=== PATIENT | female | born 1990 | race Caucasian/White ===

== ENCOUNTER 2024-10-22 15:16 | Outpatient (CLI) | payer OTHER, SELFPAY ==
--- OUTSIDE RECORDS SUMMARY | 2024-10-22 15:44 | XMS_ITS | Encounter Summary ---
Author Organization [facility] Address [address] [place] [address] Care Team Providers Care Watch Parts Inspector Name Role Phone Unavailable Primary Care Provider Unavailabl e Reason for Visit * Reason Onset Date Comments safety check with CP 01/01/2018 Encounter Details Date Type Department Care Team (Late st Contact Info) Description 01/01/[address] [phone] Mark Anthony Beavers MD NO ADDRESS ON FILE safety check with CP Social History Tobacco Use Types Packs/Day Years Used Date Smoking Tobacco: Never Assessed Comments No Sex and Gender Information Value Date Recorded Sex Assigned at Not on file Legal Sex Female 12:49 PM CDT Gender Identity Not on file Sexual Orientation Not on file documented as of this encounter Miscellaneous Notes * Telephone Encounter - Nayeli Hilliard LPC - 01/01/2018 3:04 PM CDT Therapist contacted Ana's Jules, who confirmed he has locked up all of the weapons, cashand medication and states he will remove her License to carry card as well when she gets home today. Jules talked some about the episode over the weekend where Ana left their home with their daughter and claims she just needed space from everything that was going on. Jules said he has been keeping close eye on her and her moods and he feels hopeful that she is finally saying she wants to get better, because before she started IOP she was saying I don't want to get better. Jules reports he has seen a positive change since she started taking the Lexapro and he thinks she is finally starting to see how important it is that she find a hobby or something else to do with her time, to give her a break from the kids and provide her some feeling of purpose outside of being a mother. Jules has number to contact therapist should other concerns arise. Jules reports no concerns for her safety at this time. documented in this encounter Plan of Treatment Not on file documented as of this encounter Visit Diagnoses Not on filedocumented in this encounter Additional Health Concerns Assessment Noted Time PHQ-9 Depression Total Score: 4 01/02/20 18 2:00 PM CDT documented as of this encounter
--- OUTSIDE RECORDS SUMMARY | 2024-10-22 15:44 | XMS_ITS | Clinical Summary ---
Author Organization [facility] Address [address] [place] [id number] Care Team Providers Care Weapons And Tactics Instructor Name Role Phone Unavailable Primary Care Provider Unavailabl e Social History Tobacco Use Types Packs/Day Years Used Date Smoking Tobacco: Never Assessed Comments Unknown Sex and Gender Information Value Date Recorded Sex Assigned at Not on file Legal Sex Female 4:41 PM CDT Gender Identity Not on file Sexual Orientation Not on file Plan of Treatment Health Maintenance Due Date Last Done Comments Cervical Cancer Screening Pa p Smear (Age 30 to 64) Every 3 Years 1992 Annual Physical 1995 Hepatitis C 2010 DTaP, Tdap and Td Vaccines ( 1 - Tdap) 2011 Hepatitis B Vaccines (1 of 3 - 19+ 3-dose series) 2011 HPV Vaccines (1 - 3-dose SCD M series) 2019 Cervical Cancer Screening Pa p with HPV Testing (Age 30 to 64) Every 5 Years 2022 Cervical Cancer Screening with HPV 2022 COVID-19 Vaccine ( - 2023-2 5 season) 2023 Meningococcal B Vaccine Aged Out No l onger eligible based on patient's age to complete this topic Meningococcal Vaccine Aged Out No seth jannet eligible based on patient's age to complete this topic Pneumococcal Vaccine: Pediat rics (0 to 5 Years) and At-Risk Patients (6 to 49 Years) Aged Out No longer eligible b ased on patient's age to complete this topic RSV Immunizations Under 20 Months Aged Out No longer eligible based on patient's age to complete this topic Advance Directives Documents on File Type Date Recorded Patient Compliance Advisor Expl anation Advance Directives and Living Will 11/03/2015 12:00 AM [employer]ES
--- OUTSIDE RECORDS SUMMARY | 2024-10-22 15:44 | XMS_ITS | Clinical Summary ---
Author Organization [facility] Address [address] [place] [address] Phone Care Team Providers Care Paper Tube Machine Operator Name Role Phone Unavailable Primary Care Provider Unavailabl e Allergies No known active allergies Medications No known medications Social History Tobacco Use Types Packs/Day Years Used Date Smoking Tobacco: Never Assessed Comments No Sex and Gender Information Value Date Recorded Sex Assigned at Not on file Legal Sex Female 12:49 PM CDT Gender Identity Not on file Sexual Orientation Not on file Last Filed Vital Signs Vital Sign Reading Time Taken Comments Blood Pressure 132/84 12/06/2017 12:30 PM CDT Pulse 82 12/06/2017 12:30 PM CDT Temperature 36.7 C (98.1 F) 12/06/2017 12:30 PM CDT Respiratory Rate 16 12/06/2017 12:30 PM CDT Oxygen Saturation - - Inhaled Oxygen Concentration - - Weight - - Height - - Body Mass Index - - Plan of Treatment Health Maintenance Due Date Last Done Comments HPV VACCINES (1 - 3-dose series) 2007 DTAP/TDAP/TD VACCINES (1 - Tdap) 2011 HEPATITIS B VACCINES (1 of 3 - 19+ 3-dose series) 04/2011 HPV/Cotest (21-29) 2013 CERVICAL CANCER SCREENING 2022 HPV/Cotest (30-65) 2022 PAP SMEAR 2022 INFLUENZA VACCINE (#1) 2024 Insurance [employer] OPEN ACCESS HMO
--- OUTSIDE RECORDS SUMMARY | 2024-10-22 15:44 | XMS_ITS | Clinical Summary ---
Author Organization [facility] Address [facility] [facility] [place] [address] Care Team Providers Care Bag Hanger Name Role Phone Unknown, Provider Primary Care Provider Unavaila ble Source Comments [facility],non-owned Affiliates and Associated Physician Practices is amultiple site organization consisting of ambulatory clinics and hospital sitesin [place], [place]. This disclosure is being madepursuant to the Care Everywhere program and may not contain all information available regarding this patient. Last updated 17.[facility] Allergies No known active allergies Medications * Be aware that medications may not be up to date on this document. Alwaysverify current medications with the patient. Acetaminophen (TYLENOL) 325 MG CAPS Active ibuprofen (MOTRIN) 200 MG tablet Take by mouth every 6 hours as needed for Pain Active Social History Tobacco Use Types Packs/Day Years Used Date Smoking Tobacco: Never Comments Unknown Sex and Gender Information Value Date Recorded Sex Assigned at Not on file Legal Sex Female 3:03 AM ANALYSIS SPECIALIST Gender Identity Not on file Sexual Orientation Not on file Last Filed Vital Signs Vital Sign Reading Time Taken Comments Blood Pressure 100/72 05/10/2016 10:01 AM ANALYSIS SPECIALIST Pulse 94 05/10/2016 10:01 AM ANALYSIS SPECIALIST Temperature 36.3 C (97.4 F) 05/10/2016 10:01 AM ANALYSIS SPECIALIST Respiratory Rate 16 05/10/2016 10:01 AM ANALYSIS SPECIALIST Oxygen Saturation 97% 05/10/2016 10:01 AM ANALYSIS SPECIALIST Inhaled Oxygen Concentration - - Weight 54.4 kg (120 lb) 05/10/2016 10:01 AM ANALYSIS SPECIALIST Height 157.5 cm (5' 2) 05/10/2016 10:01 AM ANALYSIS SPECIALIST Body Mass Index 21.95 05/10/2016 10:01 AM ANALYSIS SPECIALIST Plan of Treatment Health Maintenance Due Date Last Done Comments HIV SCREENING 2007 HEPATITIS C SCREENING 04/02/2010 DTAP/TDAP/TD VACCINES (1 - Tdap) 2011 HEPATITIS B VACCINE (1 of 3 - 19+ 3-dose series) 2011 HPV VACCINE (1 - 3-dose SCDM series) 2019 COVID-19 VACCINE (1 - 2023-2 5 season) 2023 DEPRESSION SCREENING 03/05/2024 INFLUENZA VACCINE (#1) 2024 ZOSTER VACCINE (1 of 2) 2042 HIB VACCINE Aged Out No longer eligi ble based on patient's age to complete this topic MENINGOCOCCAL (Group B) VACC INE SHARED DECISION-MAKING Aged Out No longer eligibl e based on patient's age to complete this topic MENINGOCOCCAL GROUPS A/C/Y/W VACCINE Aged Out No longer eligible b ased on patient's age to complete this topic PNEUMOCOCCAL VACCINE Aged Out No long er eligible based on patient's age to complete this topic Insurance [employer] Care Teams Bag Hanger Relationship Specialty Start Date End Date Unknown, Provider PCP - General 05/10/16
[2024-10-22 16:34] LABS: Hematocrit 39.6 % (37.0-47.0); Hemoglobin 13.0 g/dL (12.0-15.0); Mean Corpuscular HGB Conc 32.8 g/dl (32-36); Mean Corpuscular Hemoglobin 27.7 pg (26-34); Mean Corpuscular Volume 84.3 fl (80-100); Platelet Count Result 358 k/mm3 (150-375); Red Blood Count 4.70 M/mm3 (4.2-5.4); White Blood Count 7.8 K/mm3 (4.5-10.0)
[2024-10-22 16:42] LABS: Alanine Aminotransferase 25 U/L (6-35); Albumin Level 4.3 g/dL (3.5-5.1); Alkaline Phosphatase 84 U/L (38-126); Anion Gap 9 mmol/L (4-12); Aspartate Amino Transferase 38 U/L (14-36); Bilirubin,Total 0.3 mg/dL (0.2-1.3); Blood Urea Nitrogen 8 mg/dL (7-17); Calcium 9.5 mg/dL (8.4-10.2); Carbon Dioxide 31 mmol/L (22-30); Chloride 96 mmol/L (98-107); Estimated Glomerular Filt Rate > 60; Glucose 92 mg/dL (65-110); Potassium 4.4 mmol/L (3.4-5.0); Sodium 136 mmol/L (137-145); Total Protein 8.3 g/dL (6.3-8.2)
[2024-10-22 17:13] LABS: Band Neutrophils Percent 5 % (0-6); Eosinophils Absolute Manual 0.23 K/mm3 (0.02-0.50); Eosinophils Percent Manual 3 % (0-4); Lymphocytes Absolute Manual 1.79 K/mm3 (1.1-4.5); Lymphocytes Percent Manual 23.0 % (18-44); Monocytes Absolute Manual 0.39 K/mm3 (0.1-0.90); Monocytes Percent Manual 5 % (3-9); Neutrophils Absolute Manual 5.38 K/mm3 (1.3-6.7); Neutrophils Percent Manual 64 % (46-73); Total Cells Counted 100
[2024-10-22 17:14] LABS: Schistocytes None Seen
== END 2024-10-22 15:17 | disposition home or self-care (01) ==
LOC: ANHGOSHLAB 15:17
PROVIDERS: PCP Internal Medicine; Visit Provider Nurse Practitioner
DX: B34.9 Viral infection, unspecified (principal); J02.9 Acute pharyngitis, unspecified
CPT/HCPCS: 36415; 80053; 85025; 85652